=== PATIENT | female | born 1970 | race Caucasian/White ===

== ENCOUNTER → 2024-06-06 08:11 | Outpatient (REF) | payer OTHER, SELFPAY | LOC: HWWDC 08:11 | PROVIDERS: ATTENDING PHYSICIAN Nurse Practitioner Adult Health; FAMILY PHYSICIAN Nurse Practitioner Adult Health | DX: Z12.31 Encounter for screening mammogram for malignant neoplasm of breast (principal) | CPT/HCPCS: 77063; 77067 ==

== ENCOUNTER 2024-09-29 06:26 | Day surgery (SDC) | payer OTHER, SELFPAY | END 2024-09-29 09:01 | disposition home or self-care (01) | LOC: GI 06:26 | PROVIDERS: ATTENDING PHYSICIAN Internal Medicine Gastroenterology | DX: Z12.11 Encounter for screening for malignant neoplasm of colon (principal); K57.30 Diverticulosis of large intestine without perforation or abscess without bleeding; K64.0 First degree hemorrhoids | CPT/HCPCS: G0121 ==

== ENCOUNTER → 2025-06-09 17:26 | Outpatient (REF) | payer OTHER, SELFPAY | LOC: WDC 17:26 | PROVIDERS: ATTENDING PHYSICIAN Nurse Practitioner Adult Health; FAMILY PHYSICIAN Nurse Practitioner Adult Health | DX: Z12.31 Encounter for screening mammogram for malignant neoplasm of breast (principal) | CPT/HCPCS: 77063; 77067 ==